=== PATIENT | female | born 1990 | race Caucasian/White ===

== ENCOUNTER 2017-07-11 19:15 | Inpatient (IN) | payer BC ==
[2017-07-11 20:57] LABS: BASO # 0.1 K/uL (0.0-0.2); BASO % 0.5 % (0.0-2.0); EOS # 0.2 K/uL (0.0-0.7); EOS % 1.6 % (0.0-4.0); HEMOGLOBIN 15.1 g/dL (12.0-16.0); LYMPH % 14.5 % (20.0-40.0); MEAN CELL VOLUME 95.9 fl (81.0-99.0); MEAN CORPUSCULAR HEMOGLOBIN 32.2 pg (27.0-31.0); MEAN CORPUSCULAR HGB CONC 33.6 g/dL (33.0-37.0); MEAN PLATELET VOLUME 8.1 fl (7.2-11.7); MONO # 1.2 K/uL (0.0-0.8); MONO % 8.5 % (0.0-10.0); NEUT # 10.3 K/uL (1.8-7.0); NEUT % 74.9 % (50.0-75.0); NRBC % 0.2 % (0.0-0.0); RBC 4.67 Mil/uL (3.80-5.20); RED CELL DISTRIBUTION WIDTH 12.7 % (11.5-14.5); WHITE BLOOD COUNT 13.8 K/uL (4.8-10.8)
--- NOTE | 2017-07-11 21:04 | ED PDOC ---
HPI: Chest Pain Time Seen by Provider: 07/11/17 20:16 Chief Complaint (Nursing): Palpitations Chief Complaint (Provider): Palpitations/Left Calf Pain History Per: Patient History/Exam Limitations: no limitations Onset/Duration Of Symptoms: Days (x2) Current Symptoms Are (Timing): Still Present Additional Complaint(s): Stephie Faith is a 27 year old [place] female with no past medical history that presents to the ED with a chief complaint of palpitations, which she has been experiencing for the last two days, and left calf pain, which she has been experiencing for the past two weeks. Patient reports that when she initially began to experience her calf discomfort 2 weeks ago, she went to a [facility], where she states she was diagnosed with a muscular strain of the left calf and given a prescription for Naprosyn. She states that she went back to [facility] today for a reevaluation because she has now developed palpitations and shortness of breath, and her concern was that she might have developed a thromboembolic event. [facility] referred her to ED today. Patient denies any associated nausea, vomiting, diarrhea, or fever. Past Medical History Reviewed: Historical Data, Nursing Documentation, Vital Signs Vital Signs: Last Vital Signs Temp 98.8 F 07/12/17 00:23 Pulse 101 H 07/12/17 01:09 Resp 18 07/12/17 01:09 BP 123/70 07/12/17 00:23 Pulse Ox 98 07/12/17 00:23 - Medical History PMH: No Chronic Diseases - Surgical History Surgical History: No Surg Hx - Family History Family History: States: Unknown Family Hx - Social History Current smoker - smoking cessation education provided: Yes (occasionally) Alcohol: Occasional - Home Medications Home Medications: Ambulatory Orders Medication Instructions Recorded Ethinyl Estradiol/Drospirenone 1 each PO 07/12/17 [Ocella 3 mg-0.03 mg Tablet] - Allergies Allergies/Adverse Reactions: Allergies Allergy/AdvReac Type Severity Reaction Status Date / Time No Known Allergies Allergy Verified 07/11/17 20:27 Review of Systems Constitutional: Negative for: Fever Cardiovascular: Positive for: Palpitations Respiratory: Positive for: Shortness of Breath Gastrointestinal: Negative for: Nausea, Vomiting, Diarrhea Musculoskeletal: Positive for: Leg Pain (left calf pain ) Physical Exam - Reviewed Nursing Documentation Reviewed: Yes Vital Signs Reviewed: Yes - Physical Exam Appears: Positive for: Non-toxic, No Acute Distress Head Exam: Positive for: ATRAUMATIC, NORMOCEPHALIC Skin: Positive for: Normal Color, Warm Eye Exam: Positive for: Normal appearance, EOMI, PERRL Neck: Positive for: Normal, Supple Cardiovascular/Chest: Positive for: Regular Rate, Rhythm. Negative for: Murmur Respiratory: Positive for: Normal Breath Sounds. Negative for: Wheezing Gastrointestinal/Abdominal: Positive for: Normal Exam, Soft. Negative for: Tenderness Back: Positive for: Normal Inspection. Negative for: L CVA Tenderness, R CVA Tenderness Extremity: Positive for: Normal ROM. Negative for: Tenderness, Pedal Edema, Calf Tenderness, Swelling, Other (Negative Jerson's sign left leg) Neurologic/Psych: Positive for: Alert, Oriented. Negative for: Motor/Sensory Deficits - Laboratory Results Result Diagrams: 07/11/17 20:47 07/11/17 20:47 - ECG O2 Sat by Pulse Oximetry: 94 (RA) Pulse Ox Interpretation: Normal - Critical Care Total Time (In Min): 30 Medical Decision Making Medical Decision Making: Impression: 27 year old [place] female with palpitations, shortness of breath, and left calf pain Plan: * US Duplex Left Lower Extremity * EKG * CMP * CBC * D-Dimer * Urine dip * Urine preg * Reevaluation US Duplex Left Lower Extremity FINDINGS: Deep veins: Acute DVT in the left popliteal and within a calf vein. The remaining visualized deep veins of the left lower extremity are patent. Superficial veins: Unremarkable. No thrombus in the visualized great saphenous vein. Soft tissues: No acute findings. No popliteal cyst. IMPRESSION: Acute DVT in the left popliteal and within a calf vein. CT Angio Chest ordered. 22:37 CT Angio Chest FINDINGS: Pulmonary arteries: Large pulmonary emboli and the left and right pulmonary arteries extending into the segmental branches of all lobes. Aorta: No acute findings. No thoracic aortic aneurysm. Lungs: Unremarkable. No mass. No consolidation. Pleural space: Unremarkable. No significant effusion. No pneumothorax. Heart: Unremarkable. No cardiomegaly. No significant pericardial effusion. No evidence of RV dysfunction. Bones/joints: No acute fracture. No dislocation. Soft tissues: Unremarkable. Lymph nodes: Unremarkable. No enlarged lymph nodes. IMPRESSION: Large pulmonary emboli and the left and right pulmonary arteries extending into the segmental branches of all lobes. Large clot burden. No CT evidence of right heart strain. 22:55 Ordered PT, PTT, BNP, troponin, and subcutaneous Lovenox. Spoke to Dr. Proctor, Pulmonary, and Dr. Rainey, Hematology. Patient will be admitted under the care of Dr. rBown. Both Dr. Proctor and Dr. Rainey agree to management plan. Dr. Rainey feels that due to patient's stable condition, benefits do not outweigh risks for TPA at this time. Dr. Rainey states that should the patient experience hemodynamic instability, he would reconsider. Dr. Proctor feels patient should be placed in ICU for close monitoring. Case discussed with Dr. Glez, hospitalist. Clinical Diagnosis: DVT and PE Scribe Attestation: Documented by Neyda Harper, acting as a scribe for Casey Brown MD. Provider Scribe Attestation: All medical record entries made by the Scribe were at my direction and personally dictated by me. I have reviewed the chart and agree that the record accurately reflects my personal performance of the history, physical exam, medical decision making, and the department course for this patient. I have also personally directed, reviewed, and agree with the discharge instructions and disposition. Disposition - Clinical Impression Clinical Impression: Pulmonary embolism, Deep vein thrombosis (DVT) - Patient ED Disposition Is Patient to be Admitted: Yes Discussed With : Nicholas Glez (Dr Proctor/Redd/Stephanie) Counseled Patient/Family Regarding: Studies Performed, Diagnosis - Disposition Disposition Time: 22:55 Condition: GUARDED Patient Signed Over To: Marco Brown Present On Arrival: Deep Vein Thrombosis / PE
[2017-07-11 21:05] LABS: ALB/GLOB RATIO 1.1 (1.0-2.1); ALBUMIN 4.2 g/dL (3.5-5.0); ALT/SGPT 118 U/L (9-52); AST/SGOT 143 U/L (14-36); BLOOD UREA NITROGEN 17 mg/dl (7-17); CALCIUM 9.6 mg/dL (8.4-10.2); GFR AFRICAN-AMERICAN > 60; GFR NON-AFRICAN AMERICAN 55
[2017-07-11] MEDS ORDERED: Iodixanol 320 mg/ml 50 ml Sol IV ONE (21:46)
[2017-07-11] MEDS ORDERED: Sodium Chloride 0.9% 50 ML IV ONE (21:46)
[2017-07-11] MEDS ORDERED: Enoxaparin 80 mg Syringe SC STA (22:07)
[2017-07-11 22:40] LABS: PROTHROMBIN TIME 11.3 Seconds (9.8-13.1)
[2017-07-11 22:41] LABS: PARTIAL THROMBOPLASTIN TIME 26.2 Seconds (25.6-37.1)
[2017-07-11 23:05] LABS: TROPONIN I 0.086 ng/mL (0.00-0.120)
--- NOTE | 2017-07-11 23:07 | CP.PCM.CON ---
History of Present Illness - History of Present Illness History of Present Illness: CC/Reason for ICU: PE with large clot burden HPI: This is a 27 y/o female with no medical history who came into the ER with c /o palpitations and SOB, as well as L calf pain. Patient states that she initially experienced calf pain about 2 weeks ago. At the time, went to a [facility] and was diagnosed with muscular strain and set up with orthopedic f/u. For the past two days the pain has become worse, and then the SOB/RODRIGUEZ and palpitations came on, and she went back to [facility]; she was sent from there to the ED for further w/u out of concern for DVT/PE. She was diagnosed with DVT and PE here, and was started on Lovenox. Because her clot burden is rather significant, she is being watched in the ICU. Patient with Hx of contraceptive use and smoking. Denies f/c/n/v/d. Denies CP at this time. ROS: 14 systems reviewed, negative other than HPI MHx/SHx: None Allergies: None Medications: oral contraceptive Family Hx: No family history of DVT, PE Social Hx: Lives with roommates, occ tobacco, occ EtOH Past Patient History - Past Social History Alcohol: Occasional - PSYCHIATRIC Hx Substance Use: No Meds Allergies/Adverse Reactions: Allergies Allergy/AdvReac Type Severity Reaction Status Date / Time No Known Allergies Allergy Verified 07/11/17 20:27 Results - Vital Signs Recent Vital Signs: Last Vital Signs Temp 98.5 F 07/11/17 19:23 Pulse 109 H 07/11/17 22:59 Resp 18 07/11/17 22:59 BP 138/73 07/11/17 22:59 Pulse Ox 94 L 07/11/17 23:06 - Labs Result Diagrams: 07/11/17 20:47 07/11/17 20:47 Labs: Laboratory Results - last 24 hr 07/11/17 07/11/17 07/11/17 20:47 20:47 20:47 WBC 13.8 H RBC 4.67 Hgb 15.1 Hct 44.8 MCV 95.9 MCH 32.2 H MCHC 33.6 RDW 12.7 Plt Count 201 MPV 8.1 Neut % (Auto) 74.9 Lymph % (Auto) 14.5 L [place] % (Auto) 8.5 Eos % (Auto) 1.6 Baso % (Auto) 0.5 Neut # 10.3 H Lymph # 2.0 [place] # 1.2 H Eos # 0.2 Baso # 0.1 PT INR APTT D-Dimer, Quantitative 3969 H Sodium 140 Potassium 4.3 Chloride 101 Carbon Dioxide 27 Anion Gap 16 BUN 17 Creatinine 1.2 Est GFR ( Amer) > 60 Est GFR (Non-Af Amer) 55 Random Glucose 101 Calcium 9.6 Total Bilirubin 0.6 AST 143 H ALT 118 H Alkaline Phosphatase 74 Troponin I NT-Pro-B Natriuret Pep Total Protein 8.1 Albumin 4.2 Globulin 3.9 Albumin/Globulin Ratio 1.1 07/11/17 07/11/17 22:15 22:44 WBC RBC Hgb Hct MCV MCH MCHC RDW Plt Count MPV Neut % (Auto) Lymph % (Auto) [place] % (Auto) Eos % (Auto) Baso % (Auto) Neut # Lymph # [place] # Eos # Baso # PT 11.3 INR 1.0 APTT 26.2 D-Dimer, Quantitative Sodium Potassium Chloride Carbon Dioxide Anion Gap BUN Creatinine Est GFR ( Amer) Est GFR (Non-Af Amer) Random Glucose Calcium Total Bilirubin AST ALT Alkaline Phosphatase Troponin I 0.0860 NT-Pro-B Natriuret Pep 1700 H Total Protein Albumin Globulin Albumin/Globulin Ratio - EKG Data EKG Interpreted by: Myself EKG shows normal: Sinus rhythm Rate: Tachycardia - EKG Data EKG comments: RUDY - Imaging and Cardiology CT scan - chest Status: Report reviewed by me (b/l PE;) Assessment & Plan (1) Pulmonary embolism Assessment and Plan: 27 y/o female with large PE and DVT in setting of OCP and smoking. -Monitor in ICU overnight -Continue Lovenox 1 mg/kg q12h Status: Acute (2) Deep vein thrombosis (DVT) Status: Acute
[2017-07-12 07:16] LABS: HEMOGLOBIN 14.1 g/dL (12.0-16.0); MEAN CELL VOLUME 95.8 fl (81.0-99.0); MEAN CORPUSCULAR HEMOGLOBIN 32.2 pg (27.0-31.0); MEAN CORPUSCULAR HGB CONC 33.6 g/dL (33.0-37.0); RBC 4.38 Mil/uL (3.80-5.20); RED CELL DISTRIBUTION WIDTH 12.5 % (11.5-14.5); WHITE BLOOD COUNT 12.9 K/uL (4.8-10.8)
[2017-07-12 07:38] LABS: BLOOD UREA NITROGEN 15 mg/dl (7-17); CALCIUM 9.3 mg/dL (8.4-10.2); GFR AFRICAN-AMERICAN > 60; GFR NON-AFRICAN AMERICAN > 60
--- NOTE | 2017-07-12 08:34 | CARD ---
APPROVED REPORT EKG Measurement Heart [id number] MD [id number] <Conclusion> Sinus tachycardia Right atrial enlargement Borderline ECG
--- NOTE | 2017-07-12 09:01 | US ---
PROCEDURE: Left lower extremity venous duplex Doppler. HISTORY: calf pain COMPARISON: None available. TECHNIQUE: Common femoral, superficial femoral, popliteal and posterior tibial veins were evaluated. Flow was assessed with color Doppler, compressibility, assessment of phasic flow and augmentation response. FINDINGS: COMMON FEMORAL VEIN: Unremarkable. SUPERFICIAL FEMORAL VEIN: Unremarkable. POPLITEAL VEIN: Intraluminal echogenic material, incompressibility and lack of Doppler flow. POSTERIOR TIBIAL VEIN: Unremarkable. OTHER FINDINGS: Intraluminal echogenic material, incompressibility and lack of Doppler flow involving a calf vein. IMPRESSION: Occlusive deep venous thrombosis in the left popliteal and within a calf vein.
--- NOTE | 2017-07-12 09:03 | CT ---
PROCEDURE: CT Chest with contrast (Pulmonary Angiogram) HISTORY: Chest pain, r/o PE COMPARISON: None available. TECHNIQUE: Axial computed tomography images were obtained of the chest in the pulmonary arterial phase of enhancement. Coronal and sagittal reformatted images were created and reviewed. Intravenous contrast dose: 90 mL Visipaque 320 Radiation dose: Total exam DLP = 361.79 mGy-cm. This CT exam was performed using one or more of the following dose reduction techniques: Automated exposure control, adjustment of the mA and/or kV according to patient size, and/or use of iterative reconstruction technique. FINDINGS: PULMONARY ARTERIES: There are large filling defects in the distal right and left pulmonary arteries extending to the lobar and segmental branches of all lobes. AORTA: No aortic aneurysm or dissection. LUNGS: The lungs are well inflated and clear. No nodule, mass or pulmonary consolidation. PLEURAL SPACES: No pleural effusions or pneumothorax. HEART: No cardiomegaly. No significant pericardial effusion. LYMPH NODES: No pathologic lymphadenopathy. BONES, CHEST WALL: Within normal limits for the patient's age. No fracture or destructive lesion OTHER FINDINGS: Unremarkable. IMPRESSION: Acute large clot burden pulmonary embolism in the right and left pulmonary arteries extending into the lobar and segmental branches. No evidence of right ventricular strain. A preliminary report was provided by [employer].
[2017-07-12] MEDS: Enoxaparin 80 mg Syringe SC SCH ×2 (09:24→21:38)
[2017-07-12] MEDS ORDERED: Influenza Vaccine 18yr & older 0.5 ML/45 MCG SYR IM ONE (11:02)
--- NOTE | 2017-07-12 11:05 | RAD ---
HISTORY: Chest pain. COMPARISON: July 11, 2017. CT angiogram documenting bilateral pulmonary emboli. FINDINGS: LUNGS: No active pulmonary disease. PLEURA: No significant pleural effusion identified, no pneumothorax apparent. CARDIOVASCULAR: Normal. OSSEOUS STRUCTURES: No significant abnormalities. VISUALIZED UPPER ABDOMEN: Normal. OTHER FINDINGS: None. IMPRESSION: No active disease.
--- NOTE | 2017-07-12 11:14 | CP.CCUPN ---
Addendum entered and electronically signed by Bull Rodríguez MD 07/12/17 13: 53: Echo results : LVEF : 60-65% Right ventricle mild to moderately dilated. Mild to moderate pulmonary hypertension. Original Note: <Bull Rodríguez - Last Filed: 07/12/17 11:12> CCU Subjective - Physician Review Subjective (Free Text): 07/12/17 11:13 Patient seen lying in bed, resting comfortably with some shortness of breath, but no distress. Some pain in her leg, with walking. Sinus tachycardia on monitor: HR 100s, on O2 via NC. She has been on OCPs for about 6 months. She reports being occasional smoker, maybe up to 3 cigarettes per week. Very physically active, does crossfit regularly. No personal or family history of DVT/PE. CCU Objective - Vital Signs / Intake & Output Vital Signs (Last 4 hours): Vital Signs Temp Pulse Resp BP Pulse Ox 07/12/17 08:00 98.2 F 97 H 14 116/72 99 Intake and Output (Last 8hrs): Intake & Output 07/11/17 07/12/17 07/12/17 22:59 06:59 14:59 Intake Total 0 Balance 0 Weight 70.307 kg Intake: IV 0 - Physical Exam Head: Positive for: Atraumatic, Normocephalic Pupils: Positive for: PERRL Extroacular Muscles: Positive for: EOMI Mouth: Positive for: Moist Mucous Membranes Neck: Positive for: Normal Range of Motion Respiratory/Chest: Positive for: Good Air Exchange. Negative for: Respiratory Distress, Accessory Muscle Use Cardiovascular: Positive for: Regular Rate and Rhythm, Tachycardic Abdomen: Negative for: Tenderness, Distention, Normal Bowel Sounds Upper Extremity: Positive for: Normal Inspection Lower Extremity: Positive for: Normal Inspection. Negative for: Edema Neurological: Positive for: GCS=15, Speech Normal Skin: Positive for: Warm, Dry, Normal Color. Negative for: Rashes Psychiatric: Positive for: Alert, Oriented x 3, Normal Insight, Normal Concentration - Medications Active Medications: Active Medications Generic Name Dose Route Start Last Admin Trade Name Freq PRN Reason Stop Dose Admin Enoxaparin Sodium 70 mg 07/12/17 09:00 07/12/17 09:24 Lovenox SC 70 mg Q12 ROSANEN Administration Protocol - Patient Studies Lab Studies: Lab Studies 07/12/17 07/12/17 07/11/17 Range/Units 06:00 04:30 22:44 WBC 12.9 H (4.8-10.8) K/uL RBC 4.38 (3.80-5.20) Mil/uL Hgb 14.1 (12.0-16.0) g/dL Hct 42.0 (34.0-47.0) % MCV 95.8 (81.0-99.0) fl MCH 32.2 H (27.0-31.0) pg MCHC 33.6 (33.0-37.0) g/dL RDW 12.5 (11.5-14.5) % Plt Count 199 (130-400) K/uL MPV (7.2-11.7) fl Neut % (Auto) (50.0-75.0) % Lymph % (Auto) (20.0-40.0) % Louisa % (Auto) (0.0-10.0) % Eos % (Auto) (0.0-4.0) % Baso % (Auto) (0.0-2.0) % Neut # (1.8-7.0) K/uL Lymph # (1.0-4.3) K/uL Louisa # (0.0-0.8) K/uL Eos # (0.0-0.7) K/uL Baso # (0.0-0.2) K/uL PT (9.8-13.1) Seconds INR (0.9-1.2) APTT (25.6-37.1) Seconds D-Dimer, Quantitative (0-230) ng/mlDDU Sodium 139 (132-148) mmol/l Potassium 3.9 (3.6-5.0) MMOL/L Chloride 104 (98-107) mmol/L Carbon Dioxide 25 (22-30) mmol/L Anion Gap 14 (10-20) BUN 15 (7-17) mg/dl Creatinine 1.1 (0.7-1.2) mg/dl Est GFR ( Amer) > 60 Est GFR (Non-Af Amer) > 60 Random Glucose 103 (65-105) mg/dL Calcium 9.3 (8.4-10.2) mg/dL Total Bilirubin (0.2-1.3) mg/dl AST (14-36) U/L ALT (9-52) U/L Alkaline Phosphatase (38-126) U/L Troponin I 0.0860 (0.00-0.120) ng/mL NT-Pro-B Natriuret Pep 1700 H (0-450) pg/ml Total Protein (6.3-8.2) G/DL Albumin (3.5-5.0) g/dL Globulin (2.2-3.9) gm/dL Albumin/Globulin Ratio (1.0-2.1) 07/11/17 07/11/17 07/11/17 Range/Units 22:15 20:47 20:47 WBC (4.8-10.8) K/uL RBC (3.80-5.20) Mil/uL Hgb (12.0-16.0) g/dL Hct (34.0-47.0) % MCV (81.0-99.0) fl MCH (27.0-31.0) pg MCHC (33.0-37.0) g/dL RDW (11.5-14.5) % Plt Count (130-400) K/uL MPV (7.2-11.7) fl Neut % (Auto) (50.0-75.0) % Lymph % (Auto) (20.0-40.0) % [place] % (Auto) (0.0-10.0) % Eos % (Auto) (0.0-4.0) % Baso % (Auto) (0.0-2.0) % Neut # (1.8-7.0) K/uL Lymph # (1.0-4.3) K/uL [place]a # (0.0-0.8) K/uL Eos # (0.0-0.7) K/uL Baso # (0.0-0.2) K/uL PT 11.3 (9.8-13.1) Seconds INR 1.0 (0.9-1.2) APTT 26.2 (25.6-37.1) Seconds D-Dimer, Quantitative 3969 H (0-230) ng/mlDDU Sodium 140 (132-148) mmol/l Potassium 4.3 (3.6-5.0) MMOL/L Chloride 101 (98-107) mmol/L Carbon Dioxide 27 (22-30) mmol/L Anion Gap 16 (10-20) BUN 17 (7-17) mg/dl Creatinine 1.2 (0.7-1.2) mg/dl Est GFR ( Amer) > 60 Est GFR (Non-Af Amer) 55 Random Glucose 101 (65-105) mg/dL Calcium 9.6 (8.4-10.2) mg/dL Total Bilirubin 0.6 (0.2-1.3) mg/dl AST 143 H (14-36) U/L ALT 118 H (9-52) U/L Alkaline Phosphatase 74 (38-126) U/L Troponin I (0.00-0.120) ng/mL NT-Pro-B Natriuret Pep (0-450) pg/ml Total Protein 8.1 (6.3-8.2) G/DL Albumin 4.2 (3.5-5.0) g/dL Globulin 3.9 (2.2-3.9) gm/dL Albumin/Globulin Ratio 1.1 (1.0-2.1) 07/11/17 Range/Units 20:47 WBC 13.8 H (4.8-10.8) K/uL RBC 4.67 (3.80-5.20) Mil/uL Hgb 15.1 (12.0-16.0) g/dL Hct 44.8 (34.0-47.0) % MCV 95.9 (81.0-99.0) fl MCH 32.2 H (27.0-31.0) pg MCHC 33.6 (33.0-37.0) g/dL RDW 12.7 (11.5-14.5) % Plt Count 201 (130-400) K/uL MPV 8.1 (7.2-11.7) fl Neut % (Auto) 74.9 (50.0-75.0) % Lymph % (Auto) 14.5 L (20.0-40.0) % [place] % (Auto) 8.5 (0.0-10.0) % Eos % (Auto) 1.6 (0.0-4.0) % Baso % (Auto) 0.5 (0.0-2.0) % Neut # 10.3 H (1.8-7.0) K/uL Lymph # 2.0 (1.0-4.3) K/uL [place] # 1.2 H (0.0-0.8) K/uL Eos # 0.2 (0.0-0.7) K/uL Baso # 0.1 (0.0-0.2) K/uL PT (9.8-13.1) Seconds INR (0.9-1.2) APTT (25.6-37.1) Seconds D-Dimer, Quantitative (0-230) ng/mlDDU Sodium (132-148) mmol/l Potassium (3.6-5.0) MMOL/L Chloride (98-107) mmol/L Carbon Dioxide (22-30) mmol/L Anion Gap (10-20) BUN (7-17) mg/dl Creatinine (0.7-1.2) mg/dl Est GFR ( Amer) Est GFR (Non-Af Amer) Random Glucose (65-105) mg/dL Calcium (8.4-10.2) mg/dL Total Bilirubin (0.2-1.3) mg/dl AST (14-36) U/L ALT (9-52) U/L Alkaline Phosphatase (38-126) U/L Troponin I (0.00-0.120) ng/mL NT-Pro-B Natriuret Pep (0-450) pg/ml Total Protein (6.3-8.2) G/DL Albumin (3.5-5.0) g/dL Globulin (2.2-3.9) gm/dL Albumin/Globulin Ratio (1.0-2.1) Laboratory Results - last 24 hr 07/11/17 07/11/17 07/11/17 20:47 20:47 20:47 WBC 13.8 H RBC 4.67 Hgb 15.1 Hct 44.8 MCV 95.9 MCH 32.2 H MCHC 33.6 RDW 12.7 Plt Count 201 MPV 8.1 Neut % (Auto) 74.9 Lymph % (Auto) 14.5 L [place] % (Auto) 8.5 Eos % (Auto) 1.6 Baso % (Auto) 0.5 Neut # 10.3 H Lymph # 2.0 [place]a # 1.2 H Eos # 0.2 Baso # 0.1 PT INR APTT D-Dimer, Quantitative 3969 H Sodium 140 Potassium 4.3 Chloride 101 Carbon Dioxide 27 Anion Gap 16 BUN 17 Creatinine 1.2 Est GFR ( Amer) > 60 Est GFR (Non-Af Amer) 55 Random Glucose 101 Calcium 9.6 Total Bilirubin 0.6 AST 143 H ALT 118 H Alkaline Phosphatase 74 Troponin I NT-Pro-B Natriuret Pep Total Protein 8.1 Albumin 4.2 Globulin 3.9 Albumin/Globulin Ratio 1.1 07/11/17 07/11/17 07/12/17 22:15 22:44 04:30 WBC RBC Hgb Hct MCV MCH MCHC RDW Plt Count MPV Neut % (Auto) Lymph % (Auto) [place] % (Auto) Eos % (Auto) Baso % (Auto) Neut # Lymph # [place] # Eos # Baso # PT 11.3 INR 1.0 APTT 26.2 D-Dimer, Quantitative Sodium 139 Potassium 3.9 Chloride 104 Carbon Dioxide 25 Anion Gap 14 BUN 15 Creatinine 1.1 Est GFR ( Amer) > 60 Est GFR (Non-Af Amer) > 60 Random Glucose 103 Calcium 9.3 Total Bilirubin AST ALT Alkaline Phosphatase Troponin I 0.0860 NT-Pro-B Natriuret Pep 1700 H Total Protein Albumin Globulin Albumin/Globulin Ratio 07/12/17 06:00 WBC 12.9 H RBC 4.38 Hgb 14.1 Hct 42.0 MCV 95.8 MCH 32.2 H MCHC 33.6 RDW 12.5 Plt Count 199 MPV Neut % (Auto) Lymph % (Auto) [place] % (Auto) Eos % (Auto) Baso % (Auto) Neut # Lymph # [place] # Eos # Baso # PT INR APTT D-Dimer, Quantitative Sodium Potassium Chloride Carbon Dioxide Anion Gap BUN Creatinine Est GFR ( Amer) Est GFR (Non-Af Amer) Random Glucose Calcium Total Bilirubin AST ALT Alkaline Phosphatase Troponin I NT-Pro-B Natriuret Pep Total Protein Albumin Globulin Albumin/Globulin Ratio EKG/Cardiology Studies: Cardiology / EKG Studies 07/11/17 20:27 ELECTROCARDIOGRAM Stat Comment: Mode Of Transportation: PORTABLE Reason For Exam: CP Critical Care Progress Note - Nutrition Nutrition: Nutrition Category Date Time Status Regular Diet [DIET] Diets 07/11/17 Breakfast Active Assessment/Plan - Assessment and Plan (Free Text) Assessment: 27 year old female with no PMH admitted for DVT and multiple bilateral pulmonary emboli while on OCPs. Patient without personal or family history of DVT/PE, needs further workup. Assessment: 1. Deep Venous Thrombosis with Bilateral Pulmonary Emobli in setting of OCP use and occasional tobacco use. 2. Transaminitis, etiology unknown, ?hypercoaguable state Plan: -ICU monitoring for large clot burden, O2 prn dyspnea/ destaturation. -Therapeutic Anticoagulation with Lovenox 70mg q12 hrs -Hypercoaguability workup ordered: protein C&S, antithrombin 3, factor V leiden , prothrombin gene, antiphospholipid sdx, MTHFR -Obtain echo to evaluate for right heart strain, troponins negative. -Repeat CMP in AM, monitor LFTs -Pulmonary and Hematology/Oncology consults Case d/w intesivist. Marcos PGY2 <Jovi Mirza V - Last Filed: 07/12/17 14:23> CCU Subjective - Physician Review Events Since Last Encounter (Free Text): 07/12/17 14:22 Patient is seen, examined at bedside. Case discussed in am rounds. agree with plan of care as detailed in resident's note CCU Objective - Vital Signs / Intake & Output Vital Signs (Last 4 hours): Vital Signs Temp Pulse Resp BP Pulse Ox 07/12/17 14:00 106 H 23 108/79 96 07/12/17 12:00 97.4 F L 105 H 12 109/51 L 92 L Intake and Output (Last 8hrs): Intake & Output 07/11/17 07/12/17 07/12/17 22:59 06:59 14:59 Intake Total 0 Balance 0 Weight 155 lb Intake: IV 0 - Medications Active Medications: Active Medications Generic Name Dose Route Start Last Admin Trade Name Freq PRN Reason Stop Dose Admin Enoxaparin Sodium 70 mg 07/12/17 09:00 07/12/17 09:24 Lovenox SC 70 mg Q12 ROSANNE Administration Protocol - Patient Studies Lab Studies: Lab Studies 07/12/17 07/12/17 07/11/17 Range/Units 06:00 04:30 22:44 WBC 12.9 H (4.8-10.8) K/uL RBC 4.38 (3.80-5.20) Mil/uL Hgb 14.1 (12.0-16.0) g/dL Hct 42.0 (34.0-47.0) % MCV 95.8 (81.0-99.0) fl MCH 32.2 H (27.0-31.0) pg MCHC 33.6 (33.0-37.0) g/dL RDW 12.5 (11.5-14.5) % Plt Count 199 (130-400) K/uL MPV (7.2-11.7) fl Neut % (Auto) (50.0-75.0) % Lymph % (Auto) (20.0-40.0) % [place]a % (Auto) (0.0-10.0) % Eos % (Auto) (0.0-4.0) % Baso % (Auto) (0.0-2.0) % Neut # (1.8-7.0) K/uL Lymph # (1.0-4.3) K/uL [place]a # (0.0-0.8) K/uL Eos # (0.0-0.7) K/uL Baso # (0.0-0.2) K/uL PT (9.8-13.1) Seconds INR (0.9-1.2) APTT (25.6-37.1) Seconds D-Dimer, Quantitative (0-230) ng/mlDDU Sodium 139 (132-148) mmol/l Potassium 3.9 (3.6-5.0) MMOL/L Chloride 104 (98-107) mmol/L Carbon Dioxide 25 (22-30) mmol/L Anion Gap 14 (10-20) BUN 15 (7-17) mg/dl Creatinine 1.1 (0.7-1.2) mg/dl Est GFR ( Amer) > 60 Est GFR (Non-Af Amer) > 60 Random Glucose 103 (65-105) mg/dL Calcium 9.3 (8.4-10.2) mg/dL Total Bilirubin (0.2-1.3) mg/dl AST (14-36) U/L ALT (9-52) U/L Alkaline Phosphatase (38-126) U/L Troponin I 0.0860 (0.00-0.120) ng/mL NT-Pro-B Natriuret Pep 1700 H (0-450) pg/ml Total Protein (6.3-8.2) G/DL Albumin (3.5-5.0) g/dL Globulin (2.2-3.9) gm/dL Albumin/Globulin Ratio (1.0-2.1) 07/11/17 07/11/17 07/11/17 Range/Units 22:15 20:47 20:47 WBC (4.8-10.8) K/uL RBC (3.80-5.20) Mil/uL Hgb (12.0-16.0) g/dL Hct (34.0-47.0) % MCV (81.0-99.0) fl MCH (27.0-31.0) pg MCHC (33.0-37.0) g/dL RDW (11.5-14.5) % Plt Count (130-400) K/uL MPV (7.2-11.7) fl Neut % (Auto) (50.0-75.0) % Lymph % (Auto) (20.0-40.0) % [place]a % (Auto) (0.0-10.0) % Eos % (Auto) (0.0-4.0) % Baso % (Auto) (0.0-2.0) % Neut # (1.8-7.0) K/uL Lymph # (1.0-4.3) K/uL [place]a # (0.0-0.8) K/uL Eos # (0.0-0.7) K/uL Baso # (0.0-0.2) K/uL PT 11.3 (9.8-13.1) Seconds INR 1.0 (0.9-1.2) APTT 26.2 (25.6-37.1) Seconds D-Dimer, Quantitative 3969 H (0-230) ng/mlDDU Sodium 140 (132-148) mmol/l Potassium 4.3 (3.6-5.0) MMOL/L Chloride 101 (98-107) mmol/L Carbon Dioxide 27 (22-30) mmol/L Anion Gap 16 (10-20) BUN 17 (7-17) mg/dl Creatinine 1.2 (0.7-1.2) mg/dl Est GFR ( Amer) > 60 Est GFR (Non-Af Amer) 55 Random Glucose 101 (65-105) mg/dL Calcium 9.6 (8.4-10.2) mg/dL Total Bilirubin 0.6 (0.2-1.3) mg/dl AST 143 H (14-36) U/L ALT 118 H (9-52) U/L Alkaline Phosphatase 74 (38-126) U/L Troponin I (0.00-0.120) ng/mL NT-Pro-B Natriuret Pep (0-450) pg/ml Total Protein 8.1 (6.3-8.2) G/DL Albumin 4.2 (3.5-5.0) g/dL Globulin 3.9 (2.2-3.9) gm/dL Albumin/Globulin Ratio 1.1 (1.0-2.1) 07/11/17 Range/Units 20:47 WBC 13.8 H (4.8-10.8) K/uL RBC 4.67 (3.80-5.20) Mil/uL Hgb 15.1 (12.0-16.0) g/dL Hct 44.8 (34.0-47.0) % MCV 95.9 (81.0-99.0) fl MCH 32.2 H (27.0-31.0) pg MCHC 33.6 (33.0-37.0) g/dL RDW 12.7 (11.5-14.5) % Plt Count 201 (130-400) K/uL MPV 8.1 (7.2-11.7) fl Neut % (Auto) 74.9 (50.0-75.0) % Lymph % (Auto) 14.5 L (20.0-40.0) % [place] % (Auto) 8.5 (0.0-10.0) % Eos % (Auto) 1.6 (0.0-4.0) % Baso % (Auto) 0.5 (0.0-2.0) % Neut # 10.3 H (1.8-7.0) K/uL Lymph # 2.0 (1.0-4.3) K/uL [place]a # 1.2 H (0.0-0.8) K/uL Eos # 0.2 (0.0-0.7) K/uL Baso # 0.1 (0.0-0.2) K/uL PT (9.8-13.1) Seconds INR (0.9-1.2) APTT (25.6-37.1) Seconds D-Dimer, Quantitative (0-230) ng/mlDDU Sodium (132-148) mmol/l Potassium (3.6-5.0) MMOL/L Chloride (98-107) mmol/L Carbon Dioxide (22-30) mmol/L Anion Gap (10-20) BUN (7-17) mg/dl Creatinine (0.7-1.2) mg/dl Est GFR ( Amer) Est GFR (Non-Af Amer) Random Glucose (65-105) mg/dL Calcium (8.4-10.2) mg/dL Total Bilirubin (0.2-1.3) mg/dl AST (14-36) U/L ALT (9-52) U/L Alkaline Phosphatase (38-126) U/L Troponin I (0.00-0.120) ng/mL NT-Pro-B Natriuret Pep (0-450) pg/ml Total Protein (6.3-8.2) G/DL Albumin (3.5-5.0) g/dL Globulin (2.2-3.9) gm/dL Albumin/Globulin Ratio (1.0-2.1) Laboratory Results - last 24 hr 07/11/17 07/11/17 07/11/17 20:47 20:47 20:47 WBC 13.8 H RBC 4.67 Hgb 15.1 Hct 44.8 MCV 95.9 MCH 32.2 H MCHC 33.6 RDW 12.7 Plt Count 201 MPV 8.1 Neut % (Auto) 74.9 Lymph % (Auto) 14.5 L [place] % (Auto) 8.5 Eos % (Auto) 1.6 Baso % (Auto) 0.5 Neut # 10.3 H Lymph # 2.0 [place]a # 1.2 H Eos # 0.2 Baso # 0.1 PT INR APTT D-Dimer, Quantitative 3969 H Sodium 140 Potassium 4.3 Chloride 101 Carbon Dioxide 27 Anion Gap 16 BUN 17 Creatinine 1.2 Est GFR ( Amer) > 60 Est GFR (Non-Af Amer) 55 Random Glucose 101 Calcium 9.6 Total Bilirubin 0.6 AST 143 H ALT 118 H Alkaline Phosphatase 74 Troponin I NT-Pro-B Natriuret Pep Total Protein 8.1 Albumin 4.2 Globulin 3.9 Albumin/Globulin Ratio 1.1 07/11/17 07/11/17 07/12/17 22:15 22:44 04:30 WBC RBC Hgb Hct MCV MCH MCHC RDW Plt Count MPV Neut % (Auto) Lymph % (Auto) [place] % (Auto) Eos % (Auto) Baso % (Auto) Neut # Lymph # [place] # Eos # Baso # PT 11.3 INR 1.0 APTT 26.2 D-Dimer, Quantitative Sodium 139 Potassium 3.9 Chloride 104 Carbon Dioxide 25 Anion Gap 14 BUN 15 Creatinine 1.1 Est GFR ( Amer) > 60 Est GFR (Non-Af Amer) > 60 Random Glucose 103 Calcium 9.3 Total Bilirubin AST ALT Alkaline Phosphatase Troponin I 0.0860 NT-Pro-B Natriuret Pep 1700 H Total Protein Albumin Globulin Albumin/Globulin Ratio 07/12/17 06:00 WBC 12.9 H RBC 4.38 Hgb 14.1 Hct 42.0 MCV 95.8 MCH 32.2 H MCHC 33.6 RDW 12.5 Plt Count 199 MPV Neut % (Auto) Lymph % (Auto) [place] % (Auto) Eos % (Auto) Baso % (Auto) Neut # Lymph # [place] # Eos # Baso # PT INR APTT D-Dimer, Quantitative Sodium Potassium Chloride Carbon Dioxide Anion Gap BUN Creatinine Est GFR ( Amer) Est GFR (Non-Af Amer) Random Glucose Calcium Total Bilirubin AST ALT Alkaline Phosphatase Troponin I NT-Pro-B Natriuret Pep Total Protein Albumin Globulin Albumin/Globulin Ratio EKG/Cardiology Studies: Cardiology / EKG Studies 07/11/17 20:27 ELECTROCARDIOGRAM Stat Comment: Mode Of Transportation: PORTABLE Reason For Exam: CP Critical Care Progress Note - Nutrition Nutrition: Nutrition Category Date Time Status Regular Diet [DIET] Diets 07/11/17 Breakfast Active
--- NOTE | 2017-07-12 12:39 | CP.PCM.CON ---
History of Present Illness - History of Present Illness History of Present Illness: 27 year old female with no past medical history, presented with shortness of breath and calf pain, found to have PE and DVT. The patient reports to calf pain for about 2 weeks which she attributed to soreness from exercise. She then began to experience shortness of breath and palpitations with exertion. She went to an urgent care center and was instructed to come to the hospital. In the ER a CT angio of the chest revealed PE and venous duplex of the LE revealed a left popliteal and calf DVT. She was started on therapeutic Lovenox and sent to ICU for close monitoring. She denies immobility and exercises regularly. She does admit to oral contraceptive pill use. Past medical history: None Past surgical history: None Family history: Mom had to take unknown injection during Social history: 3 cigs daily, social ETOH, denies illicit drug use. Allergies: NKA Review of systems: All remaining review of systems including HEENT, cardiovacular, respiratory, gastrointestinal, genitourinary, musculoskeletal, dermatologic, neurologic, and psychiatric are negative unless mentioned in the HPI. Past Patient History - Past Medical History & Family History Past Medical History?: No - Past Social History Alcohol: Occasional - MUSCULOSKELETAL/RHEUMATOLOGICAL Hx Falls: No - PSYCHIATRIC Hx Substance Use: No - SURGICAL HISTORY Hx Surgeries: No - ANESTHESIA Hx Anesthesia: No Meds Allergies/Adverse Reactions: Allergies Allergy/AdvReac Type Severity Reaction Status Date / Time No Known Allergies Allergy Verified 07/11/17 20:27 - Medications Medications: Current Medications Enoxaparin Sodium (Lovenox) 70 mg SC Q12 ROSANNE PRN Reason: Protocol Last Admin: 07/12/17 09:24 Dose: 70 mg Physical Exam - Head Exam Head Exam: ATRAUMATIC - Eye Exam Eye Exam: Normal appearance - ENT Exam ENT Exam: Mucous Membranes Dry - Respiratory Exam Respiratory Exam: NORMAL BREATHING PATTERN - Cardiovascular Exam Cardiovascular Exam: +S1, +S2 - GI/Abdominal Exam GI & Abdominal Exam: Normal Bowel Sounds - Extremities Exam Extremities exam: Positive for: pedal edema - Neurological Exam Neurological exam: Oriented x3 - Psychiatric Exam Psychiatric exam: Normal Affect, Normal Mood - Skin Skin Exam: Warm Results - Vital Signs Recent Vital Signs: Last Vital Signs Temp 97.4 F L 07/12/17 12:00 Pulse 105 H 07/12/17 12:00 Resp 12 07/12/17 12:00 BP 109/51 L 07/12/17 12:00 Pulse Ox 92 L 07/12/17 12:00 - Labs Result Diagrams: 07/12/17 06:00 07/12/17 04:30 Labs: Laboratory Results - last 24 hr 07/11/17 07/11/17 07/11/17 20:47 20:47 20:47 WBC 13.8 H RBC 4.67 Hgb 15.1 Hct 44.8 MCV 95.9 MCH 32.2 H MCHC 33.6 RDW 12.7 Plt Count 201 MPV 8.1 Neut % (Auto) 74.9 Lymph % (Auto) 14.5 L [place] % (Auto) 8.5 Eos % (Auto) 1.6 Baso % (Auto) 0.5 Neut # 10.3 H Lymph # 2.0 [place] # 1.2 H Eos # 0.2 Baso # 0.1 PT INR APTT D-Dimer, Quantitative 3969 H Sodium 140 Potassium 4.3 Chloride 101 Carbon Dioxide 27 Anion Gap 16 BUN 17 Creatinine 1.2 Est GFR ( Amer) > 60 Est GFR (Non-Af Amer) 55 Random Glucose 101 Calcium 9.6 Total Bilirubin 0.6 AST 143 H ALT 118 H Alkaline Phosphatase 74 Troponin I NT-Pro-B Natriuret Pep Total Protein 8.1 Albumin 4.2 Globulin 3.9 Albumin/Globulin Ratio 1.1 07/11/17 07/11/17 07/12/17 22:15 22:44 04:30 WBC RBC Hgb Hct MCV MCH MCHC RDW Plt Count MPV Neut % (Auto) Lymph % (Auto) [place] % (Auto) Eos % (Auto) Baso % (Auto) Neut # Lymph # [place] # Eos # Baso # PT 11.3 INR 1.0 APTT 26.2 D-Dimer, Quantitative Sodium 139 Potassium 3.9 Chloride 104 Carbon Dioxide 25 Anion Gap 14 BUN 15 Creatinine 1.1 Est GFR ( Amer) > 60 Est GFR (Non-Af Amer) > 60 Random Glucose 103 Calcium 9.3 Total Bilirubin AST ALT Alkaline Phosphatase Troponin I 0.0860 NT-Pro-B Natriuret Pep 1700 H Total Protein Albumin Globulin Albumin/Globulin Ratio 07/12/17 06:00 WBC 12.9 H RBC 4.38 Hgb 14.1 Hct 42.0 MCV 95.8 MCH 32.2 H MCHC 33.6 RDW 12.5 Plt Count 199 MPV Neut % (Auto) Lymph % (Auto) [place] % (Auto) Eos % (Auto) Baso % (Auto) Neut # Lymph # [place] # Eos # Baso # PT INR APTT D-Dimer, Quantitative Sodium Potassium Chloride Carbon Dioxide Anion Gap BUN Creatinine Est GFR ( Amer) Est GFR (Non-Af Amer) Random Glucose Calcium Total Bilirubin AST ALT Alkaline Phosphatase Troponin I NT-Pro-B Natriuret Pep Total Protein Albumin Globulin Albumin/Globulin Ratio Assessment & Plan (1) Pulmonary embolism Assessment and Plan: likely provoked from OCP - instructed patient to stop on therapeutic anticoagulation; minimum duration of 3 months inherited thrombophilia w/u sent for echo today to evaluate for right heart strain discussed IVC filter; patient deferred this Status: Acute (2) Deep vein thrombosis (DVT) Assessment and Plan: provoked from OCP on therapeutic anticoagulation for minimum of 3 months Status: Acute (3) Leukocytosis Assessment and Plan: likely reactive Thank you for this interesting consult. Status: Acute
--- NOTE | 2017-07-12 13:25 | CARD ---
APPROVED REPORT EXAM: Two-dimensional and M-mode echocardiogram with Doppler and color Doppler. Other Information Quality : GoodRhythm : Tachycardia INDICATION Pulmonary Embolism 2D DIMENSIONS IVSd1.57 (0.7-1.1cm)LVDd3.40 (3.9-5.9cm) LVOT Diameter2.59 (1.8-2.4cm)PWd0.75 (0.7-1.1cm) IVSs1.70 (0.8-1.2cm)LVDs2.55 (2.5-4.0cm) FS (%) 24.9 %PWs1.34 (0.8-1.2cm) M-Mode DIMENSIONS Left Atrium (MM)3.03 (2.5-4.0cm)IVSd1.49 (0.7-1.1cm) Aortic Root2.92 (2.2-3.7cm)LVDd3.75 (4.0-5.6cm) Aortic Cusp Exc.1.82 (1.5-2.0cm)PWd1.13 (0.7-1.1cm) IVSs1.76 cmFS (%) 45 % LVDs2.07 (2.0-3.8cm)PWs1.68 cm Mitral Valve E/A ratio0.0 TDI E/Lateral E'0.0E/Medial E'0.0 Pulmonary Valve PV Peak Yaknxtul31.7cm/s Tricuspid Valve TR Peak [id number] [id number] Peak Gr.33mmHg [id number] LEFT VENTRICLE The left ventricle is normal size. There is normal left ventricular wall thickness. Left ventricle systolic function is normal. The Ejection Fraction is 60-65%. There is normal LV segmental wall motion. Transmitral Doppler flow pattern is Grade I-abnormal relaxation pattern. RIGHT VENTRICLE The right ventricle is mildly to moderately dilated. There is normal right ventricular wall thickness. The right ventricular systolic function is normal. ATRIA The left atrium size is normal. The right atrium size is normal. AORTIC VALVE The aortic valve is normal in structure. No aortic regurgitation is present. There is no aortic valvular stenosis. MITRAL VALVE The mitral valve is normal in structure. There is no evidence of mitral valve prolapse. There is no mitral valve stenosis. There is no mitral valve regurgitation noted. TRICUSPID VALVE The tricuspid valve is normal in structure. There is mild tricuspid regurgitation. Right ventricular systolic pressure is estimated at 42 mmHg. There is mild-moderate pulmonary hypertension. PULMONIC VALVE The pulmonary valve is normal in structure. There is no pulmonic valvular regurgitation. GREAT VESSELS The aortic root is normal in size. The IVC is normal in size and collapses >50% with inspiration. PERICARDIAL EFFUSION The pericardium appears normal. <Conclusion> The left ventricle is normal size. There is normal left ventricular wall thickness. There is normal LV segmental wall motion. Left ventricle systolic function is normal. The Ejection Fraction is 60-65%. Transmitral Doppler flow pattern is Grade I-abnormal relaxation pattern. Right ventricular systolic pressure is estimated at 42 mmHg. There is mild-moderate pulmonary hypertension.
--- NOTE | 2017-07-12 15:46 | HP ---
CHIEF COMPLAINT: Shortness of breath. HISTORY OF PRESENT ILLNESS: This is a 27-year-old female without significant past medical history, who was on control pill, was feeling bad and was having leg pain. the patient went to see the MD where the patient was treated for muscle cramps. The patient did not improve and started having palpitation and shortness of breath, so the patient was sent back to see the MD and was sent to the emergency room for further management. While in the emergency room, after workup, the patient was found to have pulmonary embolism and was admitted for further management. REVIEW OF SYSTEMS: Positive for leg pain, palpitation and shortness of breath. Review of systems, otherwise, is negative for headache, dizziness, syncope, loss of consciousness, nausea, vomiting, diarrhea, constipation. Review of systems of all other organ system is unremarkable. PAST MEDICAL HISTORY: Unremarkable. PAST SURGICAL HISTORY: Unremarkable. PERSONAL HISTORY: The patient is currently nonsmoker, nondrinker. No substance abuse. MEDICATIONS: The patient is on control pill, Ocella. ALLERGIES: THE PATIENT IS NOT ALLERGIC TO ANY MEDICATION. FAMILY HISTORY: Noncontributory. PHYSICAL EXAMINATION: GENERAL: Well-built, well-nourished, slightly overweight 27-year-old young female, in no acute distress. VITAL SIGNS: Temperature 99.3, pulse 100, respirations 16, blood pressure 110/82. HEENT: Pupils reacting to light. No JVD. No thyromegaly. No lymphadenopathy. No nystagmus. Normocephalic, atraumatic skull. HEART: S1, S2 normal and regular. No significant murmur, gallop, or rub is heard. LUNGS: Show good bilateral air exchange. No rales or rhonchi. ABDOMEN: Soft, nontender. No organomegaly. No fluid. Bowel sounds are plus and normal. EXTREMITIES: The patient has left lower extremity slightly enlarged, but no calf swelling. No tenderness. No acute ischemia. CENTRAL NERVOUS SYSTEM: The patient is alert, awake, oriented x3. There is no sign of any acute gross focal motor or sensory neurological deficit. DIAGNOSTIC DATA: Available diagnostic data reviewed. Telemetry monitoring does not reveal significant arrhythmias. WBC 13.8, hemoglobin 15.1, hematocrit 44.8, platelets 201,000. D-dimer is 3969. Sodium , potassium 4.2, chloride 101, bicarb 27, BUN 17, creatinine 1.2. AST is 143, ALT is 118. Troponin level is 0.08. ProBNP level is 1700. CTA is positive for pulmonary embolism. Left ultrasound is positive for DVT. ADMITTING IMPRESSION: Pulmonary embolism, left leg deep venous thrombosis, elevated liver enzymes. PLAN: As ordered. Case and plan discussed with the patient. Marco Brown MD
[2017-07-13 05:33] LABS: HEMOGLOBIN 14.9 g/dL (12.0-16.0); MEAN CELL VOLUME 95.9 fl (81.0-99.0); MEAN CORPUSCULAR HEMOGLOBIN 32.4 pg (27.0-31.0); MEAN CORPUSCULAR HGB CONC 33.8 g/dL (33.0-37.0); RBC 4.58 Mil/uL (3.80-5.20); RED CELL DISTRIBUTION WIDTH 12.6 % (11.5-14.5); WHITE BLOOD COUNT 10.4 K/uL (4.8-10.8)
[2017-07-13 05:55] LABS: ALBUMIN 3.6 g/dL (3.5-5.0); ALT/SGPT 82 U/L (9-52); AST/SGOT 43 U/L (14-36); BLOOD UREA NITROGEN 19 mg/dl (7-17); CALCIUM 9.2 mg/dL (8.4-10.2); GFR AFRICAN-AMERICAN > 60; GFR NON-AFRICAN AMERICAN 50
[2017-07-13] MEDS: Enoxaparin 80 mg Syringe SC SCH (08:33)
--- NOTE | 2017-07-13 08:59 | PN ---
DATE: 07/13/2017 SUBJECTIVE: The patient is seen and examined. Interim events noted. Consults noted and appreciated. Hematology/Oncology interventions noted and appreciated. The patient remains in the Intensive Care Unit. The patient feels better. Chest pain and shortness of breath improved. No new complaint. No leg pain. PHYSICAL EXAMINATION: GENERAL: The patient is in no acute distress. VITAL SIGNS: Stable. No orthostatic changes. HEART: S1 and S2, normal and regular. LUNGS: Good bilateral air entry. ABDOMEN: Soft, nontender. No organomegaly. No fluid. Bowel sounds are plus and normal. EXTREMITIES: No edema. No calf swelling. No tenderness. No acute ischemia. CENTRAL NERVOUS SYSTEM: Essentially unchanged. DIAGNOSTIC DATA: Available diagnostic data reviewed. Hypercoagulable status workup is pending. ASSESSMENT AND PLAN: Overall, the patient is clinically stable and improving. Plan as ordered. Marco Brown MD
--- NOTE | 2017-07-13 21:44 | CP.PCM.CON ---
History of Present Illness - History of Present Illness History of Present Illness: 27 y/o with history of tobacco use and OC use, who presents with Pulmonary Emboli. No PMHx Mild smoker. Neg long trips on flights nor ground transportation. No meds except for OC. NKDA Vss Stable except for mild tachycardia. O2 Sat 98 on RA Lungs clear. a/p Acute PE / DVT Plan. Cont O2 Sat > 90 %. Patient is saturating well on RA. W/U for hypercoagulable state. Cont AC, would start Oral agents and continue for 9 months. Repeat Echo in one month as outpatient. signing out of case, please reconsult prn. Past Patient History - Past Medical History & Family History Past Medical History?: No - Past Social History Alcohol: Occasional - MUSCULOSKELETAL/RHEUMATOLOGICAL Hx Falls: No - PSYCHIATRIC Hx Substance Use: No - SURGICAL HISTORY Hx Surgeries: No - ANESTHESIA Hx Anesthesia: No Meds Allergies/Adverse Reactions: Allergies Allergy/AdvReac Type Severity Reaction Status Date / Time No Known Allergies Allergy Verified 07/11/17 20:27 - Medications Medications: Current Medications Apixaban (Eliquis) 10 mg PO BID ROSANNE PRN Reason: Protocol Last Admin: 07/13/17 21:23 Dose: 10 mg Results - Vital Signs Recent Vital Signs: Last Vital Signs Temp 98.7 F 07/13/17 20:00 Pulse 100 H 07/13/17 20:00 Resp 19 07/13/17 20:00 BP 125/75 07/13/17 20:00 Pulse Ox 98 07/13/17 20:00 - Labs Result Diagrams: 07/13/17 04:30 07/13/17 04:30 Labs: Laboratory Results - last 24 hr 07/13/17 07/13/17 04:30 04:30 WBC 10.4 RBC 4.58 Hgb 14.9 Hct 43.9 MCV 95.9 MCH 32.4 H MCHC 33.8 RDW 12.6 Plt Count 199 Sodium 139 Potassium 4.2 Chloride 102 Carbon Dioxide 28 Anion Gap 13 BUN 19 H Creatinine 1.3 H Est GFR ( Amer) > 60 Est GFR (Non-Af Amer) 50 Random Glucose 94 Calcium 9.2 Total Bilirubin 0.6 AST 43 H D ALT 82 H D Alkaline Phosphatase 61 Total Protein 7.2 Albumin 3.6 Globulin 3.6 Albumin/Globulin Ratio 1.0
--- NOTE | 2017-07-13 22:12 | CP.PCM.PN ---
Subjective - Date & Time of Evaluation Date of Evaluation: 07/13/17 Time of Evaluation: 18:40 - Subjective Subjective: No complaints. Objective - Vital Signs/Intake and Output Vital Signs (last 24 hours): Temp Pulse Resp BP Pulse Ox 98.7 F 100 H 19 125/75 98 07/13/17 20:00 07/13/17 20:00 07/13/17 20:00 07/13/17 20:00 07/13/17 20:00 Intake and Output: 07/13/17 07/14/17 18:59 06:59 Intake Total 400 Output Total 700 Balance -300 - Medications Medications: Current Medications Apixaban (Eliquis) 10 mg PO BID ROSANNE PRN Reason: Protocol Last Admin: 07/13/17 21:23 Dose: 10 mg - Labs Labs: 07/13/17 04:30 07/13/17 04:30 PT 11.3 Seconds (9.8-13.1) 07/11/17 22:15 INR 1.0 (0.9-1.2) 07/11/17 22:15 APTT 26.2 Seconds (25.6-37.1) 07/11/17 22:15 - Head Exam Head Exam: ATRAUMATIC - Eye Exam Eye Exam: Normal appearance - ENT Exam ENT Exam: Mucous Membranes Dry - Respiratory Exam Respiratory Exam: NORMAL BREATHING PATTERN - Cardiovascular Exam Cardiovascular Exam: +S1, +S2 - GI/Abdominal Exam GI & Abdominal Exam: Normal Bowel Sounds - Extremities Exam Extremities Exam: Normal Inspection Assessment and Plan (1) Pulmonary embolism Assessment & Plan: 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
[2017-07-14 06:59] LABS: HEMOGLOBIN 14.6 g/dL (12.0-16.0); MEAN CELL VOLUME 94.9 fl (81.0-99.0); MEAN CORPUSCULAR HEMOGLOBIN 32.6 pg (27.0-31.0); MEAN CORPUSCULAR HGB CONC 34.4 g/dL (33.0-37.0); RBC 4.46 Mil/uL (3.80-5.20); RED CELL DISTRIBUTION WIDTH 12.1 % (11.5-14.5); WHITE BLOOD COUNT 8.6 K/uL (4.8-10.8)
[2017-07-14 07:04] LABS: BLOOD UREA NITROGEN 14 mg/dl (7-17); CALCIUM 9.2 mg/dL (8.4-10.2); GFR AFRICAN-AMERICAN > 60; GFR NON-AFRICAN AMERICAN > 60
--- NOTE | 2017-07-14 07:56 | CP.PCM.PN ---
Subjective - Date & Time of Evaluation Date of Evaluation: 07/14/17 Time of Evaluation: 07:52 - Subjective Subjective: 27 YO F who was admitted for a PE is seen at bedside with Dr Brown. Patient appears to be comfortably resting and is doing well. She has been ambulating and denies any dificulties. Patient was given opportunity to ask all questions, and all questions were answered. Objective - Vital Signs/Intake and Output Vital Signs (last 24 hours): Temp Pulse Resp BP Pulse Ox 97.2 F L 90 20 122/79 96 07/14/17 00:26 07/14/17 00:26 07/14/17 00:26 07/14/17 00:26 07/14/17 00:26 - Medications Medications: Current Medications Apixaban (Eliquis) 10 mg PO BID ROSANNE PRN Reason: Protocol Last Admin: 07/13/17 21:23 Dose: 10 mg - Labs Labs: 07/14/17 05:40 07/14/17 05:40 PT 11.3 Seconds (9.8-13.1) 07/11/17 22:15 INR 1.0 (0.9-1.2) 07/11/17 22:15 APTT 26.2 Seconds (25.6-37.1) 07/11/17 22:15 - Constitutional Appears: No Acute Distress - Head Exam Head Exam: NORMAL INSPECTION - Eye Exam Eye Exam: Normal appearance - Respiratory Exam Respiratory Exam: Clear to Ausculation Bilateral. absent: Rhonchi, Wheezes, Respiratory Distress - Cardiovascular Exam Cardiovascular Exam: REGULAR RHYTHM, +S1, +S2 - GI/Abdominal Exam GI & Abdominal Exam: Soft, Normal Bowel Sounds. absent: Tenderness - Neurological Exam Neurological Exam: Alert, Awake, CN II-XII Intact, Normal Gait, Oriented x3 Assessment and Plan - Assessment and Plan (Free Text) Assessment: 1) DVT w/ B/L pulmonary embolm - provoked from OCP - Continue with Eloquis 10mg BID x 7 days, then 5mg BID ( continue for 9 months anticoagulation treatment) -Hypercoaguability workup ordered: factor V leiden, prothrombin gene, antiphospholipid sdx, MTHFR - Protien C and Antithrombin III WNL -heme onc consult appreciated - Echo: LVEF: 60-65 %, Right vent mild to moderatly dilated 2) Transaminitis: trending down - 143/118 trended down to 43/82
[2017-07-14] MEDS ORDERED: Pneumococcal 23-Valent Vaccine IM ONE (09:02)
--- NOTE | 2017-07-14 13:48 | CP.PCM.DIS ---
Provider - Provider Date of Admission: 07/11/17 22:36 Attending physician: Marco Brown MD Time Spent in preparation of Discharge (in minutes): 30 Diagnosis - Discharge Diagnosis (1) Pulmonary embolism Status: Acute Hospital Course - Lab Results Lab Results: Micro Results 07/12/17 08:25 Nose MRSA Culture (Admit) - Final MRSA NOT DETECTED Most Recent Lab Values WBC 8.6 K/uL (4.8-10.8) 07/14/17 05:40 RBC 4.46 Mil/uL (3.80-5.20) 07/14/17 05:40 Hgb 14.6 g/dL (12.0-16.0) 07/14/17 05:40 Hct 42.3 % (34.0-47.0) 07/14/17 05:40 MCV 94.9 fl (81.0-99.0) 07/14/17 05:40 MCH 32.6 pg (27.0-31.0) H 07/14/17 05:40 MCHC 34.4 g/dL (33.0-37.0) 07/14/17 05:40 RDW 12.1 % (11.5-14.5) 07/14/17 05:40 Plt Count 209 K/uL (130-400) 07/14/17 05:40 MPV 8.1 fl (7.2-11.7) 07/11/17 20:47 Neut % (Auto) 74.9 % (50.0-75.0) 07/11/17 20:47 Lymph % (Auto) 14.5 % (20.0-40.0) L 07/11/17 20:47 Dubois % (Auto) 8.5 % (0.0-10.0) 07/11/17 20:47 Eos % (Auto) 1.6 % (0.0-4.0) 07/11/17 20:47 Baso % (Auto) 0.5 % (0.0-2.0) 07/11/17 20:47 Neut # 10.3 K/uL (1.8-7.0) H 07/11/17 20:47 Lymph # 2.0 K/uL (1.0-4.3) 07/11/17 20:47 Dubois # 1.2 K/uL (0.0-0.8) H 07/11/17 20:47 Eos # 0.2 K/uL (0.0-0.7) 07/11/17 20:47 Baso # 0.1 K/uL (0.0-0.2) 07/11/17 20:47 PT 11.3 Seconds (9.8-13.1) 07/11/17 22:15 INR 1.0 (0.9-1.2) 07/11/17 22:15 APTT 26.2 Seconds (25.6-37.1) 07/11/17 22:15 D-Dimer, Quantitative 3969 ng/mlDDU (0-230) H 07/11/17 20:47 Protein C Activity 79 % (70-180) 07/12/17 04:45 Antithrombin III Activ 86 % activity (80-120) 07/12/17 04:45 Sodium 139 mmol/l (132-148) 07/14/17 05:40 Potassium 4.6 MMOL/L (3.6-5.0) 07/14/17 05:40 Chloride 103 mmol/L (98-107) 07/14/17 05:40 Carbon Dioxide 30 mmol/L (22-30) 07/14/17 05:40 Anion Gap 11 (10-20) 07/14/17 05:40 BUN 14 mg/dl (7-17) 07/14/17 05:40 Creatinine 1.1 mg/dl (0.7-1.2) 07/14/17 05:40 Est GFR ( Amer) > 60 07/14/17 05:40 Est GFR (Non-Af Amer) > 60 07/14/17 05:40 Random Glucose 94 mg/dL (65-105) 07/14/17 05:40 Calcium 9.2 mg/dL (8.4-10.2) 07/14/17 05:40 Total Bilirubin 0.6 mg/dl (0.2-1.3) 07/13/17 04:30 AST 43 U/L (14-36) H D 07/13/17 04:30 ALT 82 U/L (9-52) H D 07/13/17 04:30 Alkaline Phosphatase 61 U/L (38-126) 01/31/18 04:30 Troponin I 0.0860 ng/mL (0.00-0.120) 07/11/17 22:44 NT-Pro-B Natriuret Pep 1700 pg/ml (0-450) H 07/11/17 22:44 Total Protein 7.2 G/DL (6.3-8.2) 07/13/17 04:30 Albumin 3.6 g/dL (3.5-5.0) 07/13/17 04:30 Globulin 3.6 gm/dL (2.2-3.9) 07/13/17 04:30 Albumin/Globulin Ratio 1.0 (1.0-2.1) 07/13/17 04:30 - Hospital Course Hospital Course: 1) DVT w/ B/L pulmonary embolm 27 YO F who came into ER with c/o palpatations and SOB w/ left calf pain was worked up in the ER she was noted to have D Dimer of 3969 - provoked from OCP - Patient was noted to have a D Dimer of 3969. CT angio was done which showed B/ L Pulmonary embolism. Intially was given therapeutic lovenox. - Continue with Eloquis 10mg BID x 7 days, then 5mg BID ( continue for 9 months anticoagulation treatment) -Hypercoaguability workup ordered: factor V leiden, prothrombin gene, antiphospholipid sdx, MTHFR - Protien C and Antithrombin III WNL - Echo: LVEF: 60-65 %, Right vent mild to moderatly dilated - Patient has been cleared by Pulm and Heme onc. Saturating well on room air. Ambulating without difficulty. Denies chest pain , SOB. Discharge Exam - Head Exam Head Exam: NORMAL INSPECTION - Eye Exam Eye Exam: Normal appearance - Respiratory Exam Respiratory Exam: Clear to PA & Lateral, NORMAL BREATHING PATTERN. absent: Rales, Rhonchi - Cardiovascular Exam Cardiovascular Exam: REGULAR RHYTHM, +S1, +S2 - GI/Abdominal Exam GI & Abdominal Exam: Normal Bowel Sounds, Soft. absent: Tenderness - Neurological Exam Neurological exam: Alert, CN II-XII Intact, Oriented x3 - Skin Skin Exam: Normal Color, Warm Discharge Plan - Discharge Medications Prescriptions: Apixaban [Eliquis] 5 mg PO BID #28 tablet Apixaban [Eliquis] 10 mg PO BID #14 tab - Follow Up Plan Condition: GOOD Disposition: HOME/ ROUTINE Instructions: Deep Venous Thrombosis (DC) Additional Instructions: Follow up with Dr. Brown on Tuesday between 11am and 12 am. Referrals: Josh Rainey MD [Staff Provider] - Emery Proctor MD [Staff Provider] -
--- NOTE | 2017-07-14 15:33 | CP.PCM.PN ---
Subjective - Date & Time of Evaluation Date of Evaluation: 07/14/17 Time of Evaluation: 12:00 - Subjective Subjective: Feeling better Objective - Vital Signs/Intake and Output Vital Signs (last 24 hours): Temp Pulse Resp BP Pulse Ox 98.2 F 75 20 105/57 L 97 07/14/17 08:21 07/14/17 08:21 07/14/17 08:21 07/14/17 08:21 07/14/17 08:21 - Medications Medications: Current Medications Apixaban (Eliquis) 10 mg PO BID ROSANNE PRN Reason: Protocol Last Admin: 07/14/17 09:03 Dose: 10 mg - Labs Labs: 07/14/17 05:40 07/14/17 05:40 PT 11.3 Seconds (9.8-13.1) 07/11/17 22:15 INR 1.0 (0.9-1.2) 07/11/17 22:15 APTT 26.2 Seconds (25.6-37.1) 07/11/17 22:15 - Head Exam Head Exam: ATRAUMATIC - Eye Exam Eye Exam: Normal appearance - ENT Exam ENT Exam: Mucous Membranes Dry - Respiratory Exam Respiratory Exam: NORMAL BREATHING PATTERN - Cardiovascular Exam Cardiovascular Exam: +S1, +S2 - GI/Abdominal Exam GI & Abdominal Exam: Normal Bowel Sounds - Extremities Exam Extremities Exam: Normal Inspection Assessment and Plan (1) Pulmonary embolism Assessment & Plan: suspect provoked from OCP; stopped inherited thrombophilia w/u sent on Eliquis outpatient f/u Status: Acute (2) Deep vein thrombosis (DVT) Assessment & Plan: provoked from OCP on Eliquis Status: Acute (3) Leukocytosis Assessment & Plan: resolved Status: Acute
[2017-07-14 16:05] VITALS: BP 103/67; PULSE 87; RESP 18; TEMP 97.9; O2SAT 99
[2017-07-14 21:18] LABS: CARDIOLIPIN AB (IGA) <11 APL (<=11); CARDIOLIPIN AB (IGG) <14 GPL (<=14)
[2017-07-15 07:00] LABS: B2 GLYCOPROTEIN I AB(IGA) <9 SAU (<=20); B2 GLYCOPROTEIN I AB(IGG) <9 SGU (<=20); B2 GLYCOPROTEIN I AB(IGM) <9 SMU (<=20); CARDIOLIPIN AB (IGM) <12 MPL (<=12)
== END 2017-07-14 18:30 | disposition home or self-care (01) | DRG 299 ==
LOC: H.ER 19:15 → H.ERHOLD 22:36 → H.ICU/CCU 07-12 00:26 → H.MEDSURG1 07-13 23:35
PROVIDERS: ADMIT Internal Medicine; ATTEND Internal Medicine
PROC: 3E0234Z Introduction of Serum, Toxoid and Vaccine into Muscle, Percutaneous Approach (ICD-10-PCS; principal; 2017-07-12)
DX: I82.432 Acute embolism and thrombosis of left popliteal vein (principal); I26.99 Other pulmonary embolism without acute cor pulmonale; I27.20 Pulmonary hypertension, unspecified; D72.829 Elevated white blood cell count, unspecified; F17.210 Nicotine dependence, cigarettes, uncomplicated; S86.912A Strain of unspecified muscle(s) and tendon(s) at lower leg level, left leg, initial encounter; I82.4Z2 Acute embolism and thrombosis of unspecified deep veins of left distal lower extremity; T38.4X5A Adverse effect of oral contraceptives, initial encounter; R74.0 Nonspecific elevation of levels of transaminase and lactic acid dehydrogenase [LDH]; R74.8 Abnormal levels of other serum enzymes; Z23 Encounter for immunization; X58.XXXA Exposure to other specified factors, initial encounter